=== PATIENT | male | born 1955 ===

== ENCOUNTER 2017-01-16 08:36 | Day surgery (SDC) | payer SELFPAY ==
[2017-01-16] MEDS ORDERED: Lactated Ringer's 500 ML IV ONE (10:30)
[2017-01-16] MEDS ORDERED: Propofol 10 mg/ml Inj (20 ML) ONE (11:05)
[2017-01-16] MEDS ORDERED: Midazolam 2 MG/2 ML VIAL ONE (11:05)
[2017-01-16 11:28] VITALS: RESP 18
[2017-01-16 11:57] VITALS: BP 115/84; PULSE 72; TEMP 97; O2SAT 100
== END 2017-01-16 12:01 | disposition home or self-care (01) ==
LOC: H.ENDO 08:36
PROVIDERS: ATTEND Internal Medicine Gastroenterology
DX: Z12.11 Encounter for screening for malignant neoplasm of colon (principal); K57.30 Diverticulosis of large intestine without perforation or abscess without bleeding; K62.1 Rectal polyp; K64.8 Other hemorrhoids
CPT/HCPCS: 45385; 88305; J2250; J2704; J7120